=== PATIENT | male | born 1970 | race Caucasian/White ===

== ENCOUNTER → 2019-03-25 14:50 | Outpatient (CLI) | payer OTHER, SELFPAY ==
[2019-03-25 15:32] LABS: Basophils # 0.1 K/mm3 (0-0.2); Basophils % 0.6 % (0.1-2.0); Eosinophils # 0.5 K/mm3 (0.0-0.4); Hematocrit 43.4 % (42.0-52.0); Hemoglobin 14.5 g/dL (14.1-18.0); Lymphocytes # 2.5 K/mm3 (0.7-4.5); Lymphocytes % 32.3 % (10-50); Mean Corpuscular HGB Conc 33.4 g/dL (31.8-35.4); Mean Corpuscular Hemoglobin 29.1 pg (27.0-31.2); Mean Corpuscular Volume 87.4 fl (80-94); Mean Platelet Volume 8.3 fl (7.4-10.4); Monocytes # 0.5 K/mm3 (0.1-1.0); Neutrophils # 4.2 K/mm3 (1.8-7.8); Platelet Count 250 K/mm3 (142-424); Red Blood Count 4.97 M/mm3 (4.60-6.20); Red Cell Distribution Width 13.1 % (11.5-17.5); White Blood Count 7.7 K/mm3 (4.8-10.8)
[2019-03-25 16:24] LABS: Alanine Aminotransferase 37 U/L (12-78); Albumin Level 4.1 gm/dL (3.4-5.0); Albumin/Globulin Ratio 1.2 (1.1-1.8); Alkaline Phosphatase 110 U/L (46-116); Anion Gap 10.8 mEq/L (5-15); Aspartate Amino Transferase 19 U/L (15-37); Bilirubin,Total 0.3 mg/dL (0.2-1.0); Blood Urea Nitrogen 12 mg/dL (7-18); Calcium 8.8 mg/dL (8.5-10.1); Carbon Dioxide 28 mmol/L (21.0-32.0); Chloride 103 mmol/L (98-107); Creatinine,Serum 1.14 mg/dL (0.70-1.30); Estimated Glomerular Filt Rate 69 ml/min (>60); GFR (African American) 84 ML/MIN (>60); Globulin 3.5 gm/dl (1.3-3.2); Glucose 87 mg/dL (74-106); Potassium 3.8 mmoL/L (3.5-5.1); Sodium 138 mmol/L (136-145); Thyroid Stimulating Hormone 2.74 uIU/ml (0.358-3.740); Total Protein,Serum 7.6 gm/dL (6.4-8.2)
[2019-03-25 16:51] LABS: Hemoglobin A1C 5.6 % (0.0-7.0)
[2019-03-30 05:18] LABS: Testosterone, Total, LC/MS 326.7 ng/dL (264.0-916.0); Testosterone,Free 6.9 pg/mL (6.8-21.5)
== END ==
PROVIDERS: Visit Provider Internal Medicine Adolescent Medicine
DX: I10 Essential (primary) hypertension (principal); R53.83 Other fatigue
CPT/HCPCS: 36415; 80053; 83036; 84402; 84403; 84443; 85025

== ENCOUNTER 2021-10-15 16:30 | Outpatient (RCR) | payer BC, SELFPAY ==
--- NOTE | 2021-09-13 15:37 | HMH.PTOPEV ---
PT Outpatient Evaluation Rehab PT Outpatient Evaluation Start: 09/13/21 14:53 Freq: Status: Active Protocol: Document 09/13/21 15:23 MARAIH (Rec: 09/13/21 15:36 MARIAH [id number]) Electronically Signed By Mitlon Giordano, PT 09/13/21 15:23 Outpatient Therapy Subjective History Subjective History Patient is a 51 year old male presenting to outpatient PT with reports of acute LBP with RLE radicular symptoms starting approximately 1 week ago. Patient has most recently started a round of steroids and muscle relaxers that have provided some significant relief. Patient reports 3-4 occurrences of symptoms per year for approximately 4 years. Centralization of symptoms noted with lumbar extension indicating disc pathology. No recent imaging to report. Comorbidities include hx of HTN, R knee scope and umbilical hernia repair. Chief Complaint Pain,Stiff,Paresthesia Symptom Type Ache,Sharp,Numbness Symptoms Relieved By Rest/Positioning,Prescription Meds Symptoms Aggravated By Standing,Bending/Stooping, Physical Activity,Walking, Lifting Prior Functional Limitations None Current Functional Limitations Lifting,Housework,Standing, Walking,Bending/Stooping Symptom Description Constant but Variable Level of pain today (0-10) 2 Pain scale - at its best (0-10) 2 Pain scale - at its worst (0-10) 9 Lumbopelvic Eval Posture Thoracic Spine Posture Standing Position Neutral Lumbar Spine Posture Standing Position Neutral Assistive device Assistive Devices None / NA Accessory Movement L4 right L5 right Range of Motion Lumbar Spine Active Flexion Range of 74 Motion (degrees) Lumbar Spine Active Extension Range of 22 Motion (degrees) Left Lumbar Spine Lateral Flexion Active 23 Range of Motion (degrees) Right Lumbar Spine Lateral Flexion 25 Active Range of Motion (degrees) Lumbar Spine ROM Limitations Soft Tissue Tightness Manual Muscle Test Bilateral Knee Extension Strength Grade 5 Normal Knee Flexion Strength Grade 5 Normal Hip Fl
--- NOTE | 2021-10-15 17:45 | HMH.RHREAS ---
Rehab Reassessment Rehab OP Re-assessment Start: 10/15/21 16:49 Freq: Status: Active Protocol: Document 10/15/21 16:50 MARIAH (Rec: 10/15/21 17:44 MARIAH [id number]) Electronically Signed By Milton Giordano, PT 10/15/21 16:50 Rehab Re-assessment Subjective Subjective Patient reports no significant improvement since start of care. Objective Objective Notes AROM: flx 85; ext 30; SBr 30; SBl 40 MMT: WNL B Pain: currently 4/10; 8/10 at worst over past week. Neuro: intermittent pain to R posterior thigh, sometimes extending to the foot. Special tests: + Slump R Assessment Progress Assessment Slower Than Expected Assessment Notes Patient is reports no change in frequency, intensity and duration of symptoms. He does experience intermittent relief of symptoms after Rx. Sympotms exacerbated with prolonged sitting, and relieved with lumbar extension indicating disc pathology. Rx has consisted of lumbar spine mechanical traction, extension protocol for bulging discs, BLE/lumbar stretching and modailities for pain/anti- inflammatory purposes. PT suggested follow-up with MD for possible consult with neurosurgeon or referral to pain managment. PT would benefit from continuing skilled PT services to address functional limitations with prolonged sitting, bending and lifting activities. Patient goals met STG 2 Goals Not Met All others Revised Goals NA Plan Plan Continue with current POC. Frequency of Therapy 2x/week Duration of therapy 4 weeks Time and Billing Re-Eval Time 15 Re-Eval Billing Units 1 PHYSICIAN CERTIFICATION: I certify the specified therapy services for Marty Mazariegos are required, authorized, and
== END 2021-10-15 16:35 | disposition home or self-care (01) ==
LOC: PT 16:30
PROVIDERS: Visit Provider Internal Medicine Adolescent Medicine
DX: M54.31 Sciatica, right side (principal)
CPT/HCPCS: 97010; 97012; 97014; 97110; 97163; 97164; G0283